=== PATIENT | female | born 1990 | race Caucasian/White ===

== ENCOUNTER 2016-06-08 15:32 | Emergency (ER) | payer BC ==
[2016-06-08 16:33] VITALS: RESP 18
[2016-06-08 18:33] LABS: Basophils % (A) 0 %; CH 31.3; CHCM 34.6; Eosinophils # (A) 0.2 k/uL (0-0.7); Eosinophils % (A) 2 %; HCT 46.2 % (34.0-46.0); HDW 2.42; HGB 15.6 gm/dL (11.4-16.0); Luc % (Auto) 2; Lymphocytes # (A) 2.3 k/uL (1.0-4.8); Lymphocytes % (A) 24 %; MCH 30.5 pg (25.0-35.0); MCHC 33.7 g/dL (31.0-37.0); MCV 90.7 fL (80.0-100.0); Mean Platelet Volume 6.6; Monocytes # (A) 0.5 k/uL (0-1.0); Monocytes % (A) 5 %; Neutrophils # (A) 6.4 k/uL (1.3-7.7); Neutrophils % (A) 67 %; RDW 12.5 % (11.5-15.5); WBC 9.7 k/uL (3.8-10.6); WBC (Perox) 9.78
[2016-06-08 18:39] LABS: ALT 34 U/L (9-52); AST 20 U/L (14-36); Alkaline Phosphatase 74 U/L (38-126); Anion Gap 15 mmol/L; Blood Urea Nitrogen 6 mg/dL (7-17); Calcium 9.9 mg/dL (8.4-10.2); Carbon Dioxide 23 mmol/L (22-30); Chloride 104 mmol/L (98-107); Glucose 82 mg/dL (74-99); Non-African American GFR(MDRD) >60 (>60 ml/min/1.73 sqM); Potassium 4.1 mmol/L (3.5-5.1); Sodium 142 mmol/L (137-145); Total Protein 8.2 g/dL (6.3-8.2)
[2016-06-08 18:50] LABS: Creatine Kinase 70 U/L (30-135)
--- NOTE | 2016-06-08 18:51 | XR ---
EXAMINATION TYPE: XR chest 2V DATE OF EXAM: 06/08/2016 6:48 PM COMPARISON: NONE HISTORY: Chest pain TECHNIQUE: Frontal and lateral views of the chest are obtained. FINDINGS: There is no focal air space opacity. No evidence for pnuemothorax.No pleural effusion. The cardiac silhouette size is within normal limits. The osseous structures are grossly intact. IMPRESSION: 1. No acute cardiopulmonary process.
[2016-06-08 19:01] LABS: Creatine Kinase MB 0.6 ng/mL (0.0-2.4); Troponin I <0.012 ng/mL (0.000-0.034)
--- NOTE | 2016-06-08 19:06 | ED ---
General Adult HPI - General Chief complaint: Anxiety Stated complaint: chest pain/facial swelling Time Seen by Provider: 06/08/16 17:23 Source: patient, family, RN notes reviewed Mode of arrival: wheelchair Limitations: no limitations - History of Present Illness Initial comments: Chief complaint history of present illness this is a 26-year-old female reports she is having possible anxiety attack at work. Also she had pressure on her chest. Also some tingling to her face and fingers. Also possibly a hive on her left cheek which is since gone away. This time the patient reports she is feeling better. The patient reports she has similar episode about one week ago and was at [facility] had the labs which included cardiac enzymes and EKG. Patient states she was Diagnoses at that time with anxiety attack. He's also had a past history of migraine headaches. - Related Data Home Medications Medication Instructions Recorded Confirmed Aspirin 325 mg PO TID 06/08/16 06/08/16 Dextroamphetamine/Amphetamine 20 mg PO BID 06/08/16 06/08/16 [Adderall] Fluticasone Nasal Veyo [Flonase 2 spr EA NOSTRIL DAILY PRN 06/08/16 06/08/16 Nasal Veyo] Loratadine [Claritin] 10 mg PO DAILY PRN 06/08/16 06/08/16 Allergies Allergy/AdvReac Type Severity Reaction Status Date / Time sulfamethoxazole Allergy Rash/Hives Verified 06/08/16 18:00 [From Bactrim] trimethoprim [From Bactrim] Allergy Rash/Hives Verified 06/08/16 18:00 Review of Systems ROS Statement: Those systems with pertinent positive or pertinent negative responses have been documented in the HPI. Review of systems currently no headache or visual acuity changes blood swelling may been on the left side of the face that since subsided. She does have some tenderness in the left lower wisdom tooth area. Patient denies any chest pain this time no shortness of breath. The discomfort to her chest could be reproduced by she stretching her arms outward. Also mild discomfort with palpation over the anterior chest wall. No neuro deficits. All systems reviewed past medical problems anxiety attacks. She's had ligament surgery. Family history noncontributory she has ALLERGIES to sulfamethoxazole. Patient states she has a history of anxiety . Encouraged not to smoke. ROS Other: All systems not noted in ROS Statement are negative. Past Medical History Past Medical History: No Reported History History of Any Multi-Drug Resistant Organisms: None Reported Additional Past Surgical History / Comment(s): ligament surgery Past Psychological History: No Psychological Hx Reported Smoking Status: Never smoker Past Alcohol Use History: Occasional Past Drug Use History: Marijuana General Exam - General Exam Comments Initial Comments: General: The patient is awake and alert, in no distress, and does not appear acutely ill. No current discomfort to her chest is not reproducible by stretching her anterior chest wall. No nausea no vomiting no associated shortness of breath. Vital signs show temperature 98.4 pulse 95 respiratory 18 pulse ox 96% room air blood pressure 134/73. Elevated systolic noted patient will be following up with her family physician next 1-4 weeks. Eye: Pupils are equal, round and reactive to light, extra-ocular movements are intact ; there is normal conjunctiva bilaterally. No signs of icterus. Ears, nose, mouth and throat: There are moist mucous membranes and no oral lesions. No TMJ pain. She does have what appears to be an erupting wisdom tooth in the posterior left lower jaw. No significant anterior cervical lymphadenopathy. No enlargement of a salivary glands. Neck: The neck is supple, there is no tenderness . Cardiovascular: There is a regular rate and rhythm. No murmur, rub or gallop is appreciated. Reproducible anterior chest discomfort with very deep breathing and stretching of her chest wall Respiratory: Lungs are clear to auscultation, respirations are non-labored, breath sounds are equal. No wheezes, stridor, rales, or rhonchi. Gastrointestinal: Soft, non-distended, non-tender abdomen without masses or organomegaly noted. There is no rebound or guarding present. No CVA tenderness. Bowel sounds are unremarkable. Back: There is no tenderness to palpation in the midline. There is no obvious deformity. No rashes noted. Musculoskeletal: Normal ROM, no tenderness, There is no pedal edema. There is no calf tenderness or swelling. Sensation intact. Pulses equal bilaterally 2+. Neurological: CN II-XII intact, There are no obvious motor or sensory deficits. Coordination appears grossly intact. Speech is normal. No focal or lateralizing findings Skin: Skin is warm and dry and no rashes or lesions are noted. No hives noted. Psychiatric: History of anxiety in the past Limitations: no limitations Course Vital Signs 06/08/16 16:31 Temperature 98.4 F Pulse Rate 95 Respiratory 18 Rate Blood Pressure 134/73 O2 Sat by Pulse 96 Oximetry EKG Findings - EKG Comments: EKG Findings:: EKG was done and reviewed at 16 1520 normal sinus rhythm no acute ST elevation no ectopy no ischemic changes rate 81 when necessary was 122 QRS 96 QT [address] Velásquez Medical Decision Making - Medical Decision Making Medical decision making; white count 9.7 hemoglobin 15 hematocrit of 46, d- dimer 0.17, potassium 4.1 with a BUN 6 creatinine 0.5 for the GFR greater than 60. Glucose 82. Troponin less than 0.012. Chest x-ray was done AP and lateral view and reviewed by radiologist his findings are; there is no focal airspace opacity, no evidence of pneumothorax. No pleural effusion. Cardiac silhouette size within normal limits. The osseous structures are grossly intact. Impression; no acute cardiopulmonary process. As read by Dr. marco sneed. Discussed with the patient anxiety versus costochondritis etc. the patient will be advised to follow-up with family physician. Return emergency room as needed - Lab Data Result diagrams: 06/08/16 18:10 06/08/16 18:10 Lab Results 06/08/16 06/08/16 06/08/16 Range/Units 18:10 18:10 18:10 WBC 9.7 (3.8-10.6) k/uL RBC 5.10 (3.80-5.40) m/uL Hgb 15.6 (11.4-16.0) gm/dL Hct 46.2 H (34.0-46.0) % MCV 90.7 (80.0-100.0) fL MCH 30.5 (25.0-35.0) pg MCHC 33.7 (31.0-37.0) g/dL RDW 12.5 (11.5-15.5) % Plt Count 394 (150-450) k/uL Neutrophils % 67 % Lymphocytes % 24 % Monocytes % 5 % Eosinophils % 2 % Basophils % 0 % Neutrophils # 6.4 (1.3-7.7) k/uL Lymphocytes # 2.3 (1.0-4.8) k/uL Monocytes # 0.5 (0-1.0) k/uL Eosinophils # 0.2 (0-0.7) k/uL Basophils # 0.0 (0-0.2) k/uL D-Dimer (<0.60) mg/L FEU Sodium 142 (137-145) mmol/L Potassium 4.1 (3.5-5.1) mmol/L Chloride 104 (98-107) mmol/L Carbon Dioxide 23 (22-30) mmol/L Anion Gap 15 mmol/L BUN 6 L (7-17) mg/dL Creatinine 0.54 (0.52-1.04) mg/dL Est GFR (MDRD) Af Amer >60 (>60 ml/min/1.73 sqM) Est GFR (MDRD) Non-Af >60 (>60 ml/min/1.73 sqM) Glucose 82 (74-99) mg/dL Calcium 9.9 (8.4-10.2) mg/dL Total Bilirubin 1.0 (0.2-1.3) mg/dL AST 20 (14-36) U/L ALT 34 (9-52) U/L Alkaline Phosphatase 74 (38-126) U/L Total Creatine Kinase 70 (30-135) U/L CK-MB (CK-2) 0.6 (0.0-2.4) ng/mL CK-MB (CK-2) Rel Index 0.9 Troponin I <0.012 (0.000-0.034) ng/mL Total Protein 8.2 (6.3-8.2) g/dL Albumin 4.7 (3.5-5.0) g/dL 06/08/16 Range/Units 18:10 WBC (3.8-10.6) k/uL RBC (3.80-5.40) m/uL Hgb (11.4-16.0) gm/dL Hct (34.0-46.0) % MCV (80.0-100.0) fL MCH (25.0-35.0) pg MCHC (31.0-37.0) g/dL RDW (11.5-15.5) % Plt Count (150-450) k/uL Neutrophils % % Lymphocytes % % Monocytes % % Eosinophils % % Basophils % % Neutrophils # (1.3-7.7) k/uL Lymphocytes # (1.0-4.8) k/uL Monocytes # (0-1.0) k/uL Eosinophils # (0-0.7) k/uL Basophils # (0-0.2) k/uL D-Dimer <0.17 (<0.60) mg/L FEU Sodium (137-145) mmol/L Potassium (3.5-5.1) mmol/L Chloride (98-107) mmol/L Carbon Dioxide (22-30) mmol/L Anion Gap mmol/L BUN (7-17) mg/dL Creatinine (0.52-1.04) mg/dL Est GFR (MDRD) Af Amer (>60 ml/min/1.73 sqM) Est GFR (MDRD) Non-Af (>60 ml/min/1.73 sqM) Glucose (74-99) mg/dL Calcium (8.4-10.2) mg/dL Total Bilirubin (0.2-1.3) mg/dL AST (14-36) U/L ALT (9-52) U/L Alkaline Phosphatase (38-126) U/L Total Creatine Kinase (30-135) U/L CK-MB (CK-2) (0.0-2.4) ng/mL CK-MB (CK-2) Rel Index Troponin I (0.000-0.034) ng/mL Total Protein (6.3-8.2) g/dL Albumin (3.5-5.0) g/dL Disposition Clinical Impression: Hyperventilation, Atypical chest pain Disposition: HOME SELF-CARE Condition: Fair Instructions: Generalized Anxiety Disorder (ED), Costochondritis (ED), Chest Wall Pain (ED) Additional Instructions: Use Tylenol or ibuprofen as needed for discomfort. Rest relax as needed follow up with your family physician return emergency room as needed. Time of Disposition: 19:11
[2016-06-08 19:08] VITALS: PULSE 88
[2016-06-08 19:24] VITALS: BP 119/74; TEMP 97.9
== END 2016-06-08 19:24 | disposition home or self-care (01) ==
LOC: EC 15:32
DX: R07.89 Other chest pain (principal); R06.4 Hyperventilation; Z79.82 Long term (current) use of aspirin; Z79.899 Other long term (current) drug therapy; Z88.2 Allergy status to sulfonamides
CPT/HCPCS: 36415; 71020; 80053; 82550; 82553; 84484; 85025; 85379; 93005; 99284